=== PATIENT | male | born 1955 | race Caucasian/White ===

== ENCOUNTER 2020-05-12 08:57 | Outpatient (CLI) | payer MEDICARE, BC ==
[2020-05-12] MEDS ORDERED: IOVERSOL 320 100 ML VIAL IVP ONE ×2 (09:11→09:38)
--- NOTE | 2020-05-12 15:48 | CT Report ---
PROCEDURE: ANGIO CHEST W/WO INDICATIONS: ASENDING AORTA DILATAION CONTRAST: IV CONTRAST: Optiray 320 ml: 100 PO CONTRAST: *NO PO CONTRAST TECHNIQUE: After the administration of intravenous contrast, 2 mm thick sections acquired from the pulmonary api lauren to the posterior costophrenic angles. 3-dimensional maximum intensity projection (MIP) coronal a nd sagittal reformats were then acquired through the thorax. For radiation dose reduction, the follow ing was used: automated exposure control, adjustment of mA and/or kV according to patient size. COMPARISON: None FINDINGS: Image quality: Excellent. Pulmonary arteries: Pulmonary arteries are normal in size, and demonstrate no intraluminal filling d efects to suggest central pulmonary embolism. Lungs and pleura: Lungs are clear except for a 4 x 6 mm ovoid solid pulmonary nodule at the lateral left costophrenic sulcus, series 7 image 293. No pleural effusions or pneumothorax. Central and per ipheral airways are patent. Mediastinum: Heart size is normal, without pericardial effusion. No mediastinal or hilar adenopathy . Thoracic aorta is mildly aneurysmal in caliber at the ascending aorta above the aortic root measur ing up to 4.8 cm in maximal axial dimension. The aorta appears normal in enhancement, free of eccentr ic aneurysm, and shows no evidence of dissection.. Esophagus is normal in caliber, without hiatal he rnia. Bones and chest wall: No suspicious bony lesions. Ribs and thoracic spine appear intact throughout. The thyroid is normal. No axillary or supraclavicular adenopathy. Abdomen: Visualized upper abdominal solid organs appear normal in the early arterial phase of enhanc ement. Incidental note is made of a gallbladder calcification, consistent with calculus but without evidence of inflammation. IMPRESSION: Isolated finding of 4.8 cm maximal axial dimension ascending aorta, fusiform type, without perianeury smal fibrosis or evidence of aneurysm leak. No associated dissection. The remainder of the examinatio n appears normal and the descending thoracic aorta is normal in caliber as is the superior aspect of the abdominal aorta. Incidental note is made of a 4 x 6 mm lateral left lung base costophrenic sulcus pulmonary nodule, wi thout comparison study to establish chronicity. Six-month follow-up noncontrast CT is recommended, ut ilizing the Fleischner Society criteria for follow-up of solid pulmonary nodules. Also, note is made of a partially calcified gallstone within the gallbladder lumen showing no evidence of associated gal lbladder inflammation or biliary distention. Reviewed by: Rickie Dunham MD on 05/12/2020 3:47 PM PDT Approved by: Rickie Dunham MD on 05/12/2020 3:47 PM PDT Station ID: [id number]
== END 2020-05-12 08:58 | disposition home or self-care (01) ==
LOC: DI 08:57
PROVIDERS: ATTEND Nurse Practitioner Family
DX: I77.810 Thoracic aortic ectasia (principal); R91.1 Solitary pulmonary nodule
CPT/HCPCS: 71275; Q9967

== ENCOUNTER 2021-09-21 13:40 | Outpatient (CLI) | payer MEDICARE, BC ==
[2021-09-21 14:22] LABS: CALCIUM 9.2 mg/dL (8.5-10.3); POTASSIUM 4.5 mmol/L (3.5-5.0)
== END 2021-09-21 13:41 | disposition home or self-care (01) ==
LOC: LAB 13:40
PROVIDERS: ATTEND Internal Medicine Cardiovascular Disease
DX: I50.9 Heart failure, unspecified (principal)
CPT/HCPCS: 36415; 80048

== ENCOUNTER 2021-11-29 10:33 | Outpatient (CLI) | payer MEDICARE, BC | END 2021-11-29 10:34 | disposition home or self-care (01) | LOC: DI 10:33 | PROVIDERS: ATTEND Internal Medicine Cardiovascular Disease | DX: I42.0 Dilated cardiomyopathy (principal); I51.7 Cardiomegaly; I48.91 Unspecified atrial fibrillation; I34.0 Nonrheumatic mitral (valve) insufficiency; I77.810 Thoracic aortic ectasia | CPT/HCPCS: 93306 ==